=== PATIENT | male | born 2000 | race Caucasian/White ===

== ENCOUNTER 2023-05-29 15:02 | Emergency (ER) | payer MEDICAID ==
[~2023-05-29] VITALS: Ht 175.3 cm; Wt 75.0 kg
[2023-05-29 15:05] VITALS: O2SAT 99
[2023-05-29] MEDS ORDERED: HYDROCODONE/ACETAMINOPHEN 5/325MG TABLET PO STA (15:27)
[2023-05-29] MEDS ORDERED: KETOROLAC 60MG/2ML VIAL IM STA (16:55)
[2023-05-29] MEDS ORDERED: BACITRACIN ZINC OINT UDPKT TOP NR (17:00)
[2023-05-29] MEDS ORDERED: BO1 TP (17:36)
[2023-05-29] MEDS ORDERED: IBUP-2029 PO (17:36)
[2023-05-29 18:42] VITALS: BP 121/74; PULSE 74; RESP 16; TEMP 98.2
== END 2023-05-29 19:02 | disposition home or self-care (01) ==
LOC: ER 15:02
DX: S80.01XA Contusion of right knee, initial encounter (principal); S80.211A Abrasion, right knee, initial encounter; V00.131A Fall from skateboard, initial encounter; Y93.89 Activity, other specified; Y92.89 Other specified places as the place of occurrence of the external cause; Y99.8 Other external cause status
CPT/HCPCS: 73562; 99283; Z7610 ×2; J1885